=== PATIENT | female | born 1960 | race Two or more races ===

== ENCOUNTER → 2024-09-24 | Outpatient (CLI) | payer OTHER, SELFPAY ==
--- NOTE | 2024-09-24 11:00 | XR_ITS ---
Examination: Breast ultrasound, unilateral, left complete Date and time of exam: September 24, 2024 1030 hrs. Indications: Mammogram February 12, 2024 12:00 nodule left breast 5 mm, left breast sonogram February 12, 2024 12:00 nodule 5 x 5 mm Technique: Real-time infante scale ultrasonographic imaging performed left breast including all 4 quadrants as well as nipple retroareolar and axillary region. Findings: 12:00 oval mass circumscribed 6 x 6 mm 6:00 cyst 4 x 4 millimeter 11:00 cyst 6 x 4 mm Impression: BI-RADS Category 2: Benign
--- NOTE | 2024-09-24 11:30 | XR_ITS ---
Examination: Diagnostic digital mammography, unilateral, left Computer aided detection 3-D breast Tomosynthesis, unilateral Date and time of exam: 10/22/2024, 10:57 AM Comparisons: November 2019 through January 2024 Indications: Six-month follow-up of left breast nodule Technique: Nonmagnified MLO, CC views of the left breast have been obtained, reconstructed from 3-D Tomosynthesis images. R2 computer aided detection program utilized for evaluation of suspicious masses and/or abnormal calcifications. 3-D Tomosynthesis images obtained. Technologist: Findings: There are scattered areas of fibroglandular density. No evidence of abnormal masses or suspicious calcifications.. The previously described does not persist on today's exam. Impression: BI-RADS category 1: Negative findings (within normal) Recommend 1 year follow-up mammogram
== END | disposition home or self-care (01) ==
PROVIDERS: PCP Family Medicine; Referring Provider Family Medicine; Visit Provider Family Medicine
DX: R92.312 Mammographic fatty tissue density, left breast (principal)
CPT/HCPCS: 76641; 77061; 77065; G0279

== ENCOUNTER → 2024-10-29 | Outpatient (CLI) | payer OTHER, SELFPAY ==
[2024-10-29 10:59] LABS: Alanine Aminotransferase 18 U/L (10-49); Albumin, Serum 4.2 gm/dL (3.4-4.8); Alkaline Phosphatase 94 U/L (46-116); Anion Gap 8 (7-16); Aspartate Amino Transferase 22 U/L (0-34); BUN/Creatinine Ratio 22 Ratio (12-20); Bilirubin,Direct 0.2 mg/dL (0.0-0.3); Bilirubin,Total 0.7 mg/dL (0.3-1.2); Blood Urea Nitrogen 13 mg/dL (9-23); Calcium 9.4 mg/dL (8.3-10.6); Carbon Dioxide 27.9 mMol/L (20.0-31.0); Chloride 106 mMol/L (98-107); Cholesterol 219 mg/dL (132-200); Creatinine (Component) 0.6 mg/dL (0.6-1.3); Glucose 90 mg/dL (74-106); HDL Cholesterol 73 mg/dL (40-60); LDL Cholesterol,Calculated 135 mg/dL (0-130); Osmolality,Calculated 283 (275-295); Potassium 4.2 mMol/L (3.4-5.1); Sodium 142 mMol/L (136-145); Total Protein 7.1 gm/dL (5.7-8.2); Triglycerides 53 mg/dL (30-150); eGFR > 60 See Note
== END | disposition home or self-care (01) ==
LOC: COPL 09:01
PROVIDERS: PCP Family Medicine; Referring Provider Family Medicine; Visit Provider Family Medicine
DX: J30.9 Allergic rhinitis, unspecified (principal); K30 Functional dyspepsia
CPT/HCPCS: 36415; 80048; 80061; 80076

== ENCOUNTER → 2024-11-02 | Outpatient (CLI) | payer OTHER, SELFPAY | END | disposition home or self-care (01) | LOC: SLDO 09:32 | PROVIDERS: PCP Family Medicine; Referring Provider Family Medicine; Visit Provider Family Medicine | DX: Z12.11 Encounter for screening for malignant neoplasm of colon (principal); Z12.12 Encounter for screening for malignant neoplasm of rectum | CPT/HCPCS: 82274; G0328 ==